=== PATIENT | female | born 1995 | race Caucasian/White ===

== ENCOUNTER 2019-05-04 18:23 | Emergency (ER) | payer BC ==
[~2019-05-04] VITALS: Ht 167.6 cm; Wt 62.5 kg
[2019-05-04 18:27] VITALS: BP 128/77
--- NOTE | 2019-05-04 20:14 | NUR ---
EXTRUSION PRESS ADJUSTER: Patient to room from lobby at this time.
[2019-05-04 22:04] LABS: BASOPHILS # (AUTO) 0.02 x10^3/uL (0-0.1); BASOPHILS % (AUTO) 0 % (0-1); EOSINOPHILS # (AUTO) 0.23 x10^3/uL (0-0.4); EOSINOPHILS % (AUTO) 4 % (1-7); LYMPHOCYTES # (AUTO) 2.66 x10^3/uL (1-3.4); LYMPHOCYTES % (AUTO) 40 % (22-44); MD NO; MEAN CORPUSCULAR HEMOGLOBIN 31.8 pg (27.0-34.8); MEAN CORPUSCULAR HGB CONC 33.4 g/dL (32.4-35.8); MONOCYTES # (AUTO) 0.49 x10^3/uL (0.2-0.8); MONOCYTES % (AUTO) 7 % (2-9); NEUTROPHILS # (AUTO) 3.27 x10^3/uL (1.8-6.8); NEUTROPHILS % (AUTO) 49 % (42-75); PLATELET COUNT 247 x10^3/uL (130-400); RED BLOOD COUNT 4.56 x10^6/uL (3.82-5.3); RED CELL DISTRIBUTION WIDTH 11.7 % (9.6-15.2)
--- NOTE | 2019-05-04 22:15 | NUR ---
Unique garzon in EDM - 05/04/19 at 2304 by FRANSICO ASSUMED CARE FOR THIS PT.. REQUESTED URINE SAMPLE PT STATED SHE WOULD TRY.
[2019-05-04 22:17] LABS: ALANINE AMINOTRANSFERASE 29 U/L (12-78); ALBUMIN 4.1 g/dL (3.4-5.0); ANION GAP 7 mmol/L (5-15); CALCIUM 9.2 mg/dL (8.5-10.1); CHLORIDE 107 mmol/L (98-107); CREATININE 0.77 mg/dL (0.55-1.02)
[2019-05-04 22:22] LABS: ALKALINE PHOSPHATASE 38 U/L (45-117); TOTAL PROTEIN 7.8 g/dL (6.4-8.2)
--- NOTE | 2019-05-04 23:03 | NUR ---
Unique garzon in ED - 05/04/19 at 2309 by FRANSICO URINE TO LABAND PT MEDICATED ORDERED.
[2019-05-04 23:19] LABS: MICROSCOPIC NOT IND
[2019-05-04 23:23] LABS: CULTURE INDICATED? NO
[2019-05-04] MEDS ORDERED: MAGNESIUM CITRATE 300ML ORAL SOL ONE (23:49)
[2019-05-05] MEDS ORDERED: MAGNESIUM CITRATE 300ML ORAL SOL PO ONE
== END 2019-05-05 00:05 | disposition home or self-care (01) ==
LOC: ED 20:38
DX: K59.00 Constipation, unspecified (principal); R10.32 Left lower quadrant pain; R11.0 Nausea
CPT/HCPCS: 36415; 74176; 80053; 81003; 84703; 85025; 99284